=== PATIENT | male | born 1990 | race Caucasian/White ===

== ENCOUNTER 2021-08-30 13:21 | Emergency (ER) | payer SELFPAY ==
[2021-08-30] MEDS ORDERED: Sodium Chloride 0.9% 1,000 ML IV ONE (13:37)
[2021-08-30] MEDS ORDERED: Ondansetron 4 MG/2 ML SDV IVPUSH ONE (13:37)
[2021-08-30] MEDS ORDERED: Ketorolac 30 MG/ML SDV IVPUSH ONE (13:37)
[2021-08-30] MEDS ORDERED: Famotidine 20 MG/2 ML SDV IVPUSH ONE (13:37)
[2021-08-30 14:30] LABS: CORONAVIRUS COVID-19 NAA NEGATIVE (NEGATIVE); INFLUENZA A NAA NEGATIVE (NEGATIVE); INFLUENZA B NAA NEGATIVE (NEGATIVE)
[2021-08-30 14:31] LABS: BLOOD UREA NITROGEN,BUN 14 mg/dL (7.0-18.0); CARBON DIOXIDE,CO2 25.1 mmol/L (21.0-32.0); CHLORIDE,CL 103 mmol/L (98-107); ESTIMATED GFR > 60.0 ml/min; GLUCOSE RANDOM 103 mg/dL (74-106); LIPASE 72 U/L (73-393); POTASSIUM,K 4.4 mmol/L (3.5-5.1); SODIUM,NA 136 mmol/L (136-148)
[2021-08-30] MEDS ORDERED: cefTRIAXone 1 GM in Sodium Chloride 0.9% 50 ML IV ONE (15:24)
[2021-08-30 18:07] LABS: C. TRACHOMATIS BY PCR NOT DETECTED; N. GONORRHOEAE BY PCR NOT DETECTED
== END 2021-08-30 16:38 | disposition home or self-care (01) ==
LOC: MW.ED 13:21
DX: K52.9 Noninfective gastroenteritis and colitis, unspecified (principal); N30.01 Acute cystitis with hematuria; Z20.822 Contact with and (suspected) exposure to COVID-19; Z79.899 Other long term (current) drug therapy
CPT/HCPCS: 0240U; 36415; 74176; 80053; 81001; 83690; 85025; 87086; 87491; 87591; 96361; 96365; 96375; 99284; J0696; J1885; J2405; J3490; J7030